=== PATIENT | male | born 1990 | race Caucasian/White ===

== ENCOUNTER 2018-05-23 08:36 | Emergency (ER) | payer OTHER, BC ==
[~2018-05-23] VITALS: Ht 177.8 cm; Wt 117.9 kg
[2018-05-23] MEDS ORDERED: Robaxin500 MG PO (09:10)
== END 2018-05-23 09:25 | disposition home or self-care (01) ==
LOC: ER 08:36
DX: S39.012A Strain of muscle, fascia and tendon of lower back, initial encounter (principal); X58.XXXA Exposure to other specified factors, initial encounter; Y93.H1 Activity, digging, shoveling and raking; Y99.0 Civilian activity done for income or pay
CPT/HCPCS: 99283

== ENCOUNTER → 2022-08-10 | Outpatient (CLI) | payer BC ==
[~2022-08-10] MED LIST: Robaxin500 MG PO
[2022-08-12 12:09] LABS: CHLAMYDIA BY NAA Negative (Negative); GONOCOCCUS BY NAA Negative (Negative); TRICH VAG BY NAA Negative (Negative)
== END | disposition home or self-care (01) ==
LOC: LAB SHORT 11:21
PROVIDERS: Chiropractor
DX: Z72.51 High risk heterosexual behavior (principal)
CPT/HCPCS: 87491; 87591; 87661